=== PATIENT | male | born 1990 | race Caucasian/White ===

== ENCOUNTER 2016-08-06 23:09 | Observation (INO) | payer BC ==
[2016-08-06] MEDS ORDERED: diphenhydrAMINE 50 MG/ML SDV ONE (23:11)
[2016-08-06] MEDS ORDERED: methylPREDNISolone Sodium Succinate 125 MG/2 ML SDV ONE (23:12)
[2016-08-06] MEDS ORDERED: EPINEPHrine 1 MG/ML SDV ONE (23:12)
[2016-08-06] MEDS ORDERED: diphenhydrAMINE 50 MG/ML SDV IVPUSH ONE (23:13)
[2016-08-06] MEDS ORDERED: methylPREDNISolone Sodium Succinate 125 MG/2 ML SDV IVPUSH ONE (23:14)
[2016-08-06] MEDS ORDERED: EPINEPHrine 1 MG/ML SDV IM ONE (23:15)
--- NOTE | 2016-08-06 23:16 | EDM.PDOC ---
ED HPI GENERAL MEDICAL PROBLEM - General Chief Complaint: Allergic Reaction Stated Complaint: PT HAS ALLERGIC REACTION Time Seen by Provider: 08/06/16 23:14 - History of Present Illness INITIAL COMMENTS - FREE TEXT/NARRATIVE: HISTORY AND PHYSICAL: History of present illness: Patient 26-year-old male presents with concern of acute allergic reaction in the form of rash itchy eyes difficulty swallowing shortness of breath tongue and lip swelling states had lesser reactions in the past but similar he does not know the etiology of this reaction Review of systems: As per history of present illness and below otherwise all systems reviewed and negative. Past medical history: As per history of present illness and as reviewed below otherwise noncontributory. Surgical history: As per history of present illness and as reviewed below otherwise noncontributory. Social history: No reported history of drug or alcohol abuse. Family history: As per history of present illness and as reviewed below otherwise noncontributory. Physical exam: HEENT: Atraumatic, normocephalic, pupils reactive, negative for conjunctival pallor or scleral icterus, mucous membranes moist, throat clear, neck supple, nontender, trachea midline. Patient has injected conjunctiva with tongue and lip swelling noted Lungs: Slightly coarse bilaterally, breath sounds equal bilaterally, chest nontender. Heart: S1S2, regular, negative for clicks, rubs, or JVD. Abdomen: Soft, nondistended, nontender. Negative for masses or hepatosplenomegaly. Negative for costovertebral tenderness. Pelvis: Stable nontender. Genitourinary: Deferred. Rectal: Deferred. Extremities: Atraumatic, negative for cords or calf pain. Neurovascular unremarkable. Neuro: Awake, alert, oriented. Cranial nerves II through XII unremarkable. Cerebellum unremarkable. Motor and sensory unremarkable throughout. Exam nonfocal. Skin: Patient has a macular papular rash involving his face head and neck and upper extremities Diagnostics: CBC CMP chest x-ray Therapeutics: IV O2 monitor epinephrine 0.3 intramuscular Solu-Medrol 125 IV Benadryl 50 mg IV Impression: #1 acute allergic reaction Definitive disposition and diagnosis as appropriate pending reevaluation and review of above. - Related Data Allergies Allergy/AdvReac Type Severity Reaction Status Date / Time No Known Allergies Allergy Verified 08/19/15 07:13 Home Meds: Home Meds Albuterol Sulfate [Proair Hfa] 8.5 gm IH ASDIRECTED PRN 08/19/15 [History] Levofloxacin [Levaquin] 500 mg PO Q24H 08/19/15 [History] Promethazine HCl/Codeine [Prometh-Codein 6.25-10 mg/5 ml] 5 ml PO ASDIRECTED 10/26 [History] Past Medical History HEENT History: Reports: None Respiratory History: Reports: Asthma Social & Family History - Family History Family Medical History: Noncontributory - Tobacco Use Smoking Status *Q: Never Smoker Years of Tobacco use: 10 Packs/Tins Daily: 1 - Recreational Drug Use Recreational Drug Use: No ED ROS ALLERGIC REACTION - Review of Systems Review Of Systems: ROS reveals no pertinent complaints other than HPI. ED EXAM GENERAL NO PERIP PULSE - Physical Exam Exam: See Below (See dictation) Course - Vital Signs Last Recorded V/S: Last Vital Signs Temp 36.6 C 08/06/16 23:09 Pulse 107 08/06/16 23:34 Resp 18 08/06/16 23:34 BP 135/77 08/06/16 23:09 Pulse Ox 94 08/06/16 23:34 - Orders/Labs/Meds Orders: Active Orders 24 hr Category Date Time Status RT Aerosol Therapy [RC] ASDIRECTED Care 08/06/16 23:34 Active Chest 1V Frontal [CR] Stat Exams 08/06/16 23:54 Taken Meds: Medications Discontinued Medications Generic Name Dose Route Start Last Admin Trade Name Freq PRN Reason Stop Dose Admin Albuterol/Ipratropium 3 ml 08/06/16 23:34 08/06/16 23:43 Duoneb 3.0-0.5 Mg/3 Ml NEB 08/06/16 23:35 3 ml ONETIME ONE Administration Diphenhydramine HCl 50 mg 08/06/16 23:13 08/06/16 23:44 Benadryl IVPUSH 08/06/16 23:14 50 mg ONETIME ONE Administration Epinephrine HCl 0.3 mg 08/06/16 23:15 08/06/16 23:47 Adrenalin 1:1000 IM 08/06/16 23:16 0.3 mg ONETIME ONE Administration Methylprednisolone Sodium Succinate 125 mg 08/06/16 23:14 08/06/16 23:44 Solu-Medrol IVPUSH 08/06/16 23:15 125 mg ONETIME ONE Administration Departure - Departure Time of Disposition: 01:11 Disposition: Refer to Observation Condition: Good Clinical Impression: Angioedema, Allergic reaction - Discharge Information - My Orders Last 24 Hours: My Active Orders 08/06/16 23:34 RT Aerosol Therapy [RC] ASDIRECTED 08/06/16 23:54 Chest 1V Frontal [CR] Stat - Assessment/Plan Last 24 Hours: My Active Orders 08/06/16 23:34 RT Aerosol Therapy [RC] ASDIRECTED 08/06/16 23:54 Chest 1V Frontal [CR] Stat
[2016-08-06] MEDS ORDERED: Albuterol/Ipratropium 3.0-0.5 MG/3 ML Neb Soln NEB ONE (23:34)
[2016-08-07] MEDS ORDERED: diphenhydrAMINE 50 MG/ML SDV IVPUSH PRN (02:58)
[2016-08-07] MEDS ORDERED: Acetaminophen 325 MG Tab PO PRN (02:58)
[2016-08-07] MEDS ORDERED: Sodium Chloride 0.9% 2.5 ML Syringe FLUSH PRN (02:58)
[2016-08-07] MEDS ORDERED: Sodium Chloride 0.9% 10 ML Syringe FLUSH PRN (02:58)
[2016-08-07] MEDS ORDERED: Albuterol/Ipratropium 3.0-0.5 MG/3 ML Neb Soln NEB PRN (02:58)
[2016-08-07] MEDS: methylPREDNISolone Sodium Succinate 125 MG/2 ML SDV IVPUSH SCH ×2 (05:37→11:03)
[2016-08-07 08:04] LABS: CHLORIDE,CL 107 mmol/L (98-110); SODIUM,NA 137 mmol/L (136-146)
[2016-08-07 08:55] VITALS: BP 131/67
--- NOTE | 2016-08-07 10:29 | CR ---
EXAM DATE: 08/07/16 PATIENT'S AGE: 26 Patient: GABRIEL CHE Facility: [place], [place] Site . Site : 1990 Study: XRay Chest [id number]/28/2017 12:02:42 AM Ordering Physician: Miladis Suero Final Report: INDICATION: SOB, PT STATES ALLERGIC REACTION TECHNIQUE: Chest 1 view. COMPARISON: 08/19/15 FINDINGS: Cardiovascular and mediastinum: Heart size and vasculature are normal in caliber and appearance. Mediastinum is within normal limits. Lungs and pleural space: Lungs are clear. No sign of infiltrate or mass. No sign of pleural effusion. No pneumothorax. Bones and soft tissues: No significant findings. IMPRESSION: Unremarkable chest. Dictated by: Rodney Gray MD @ 08/07/2016 00:07:54 (Electronic Signature) Report Signed by Proxy. RENETTA
--- NOTE | 2016-08-07 10:47 | PCM.HP ---
H&P History of Present Illness - General Date of Service: 08/07/16 Admit Problem/Dx: Admission Diagnosis/Problem Admission Diagnosis/Problem Angioedema Source of Information: Patient History Limitations: Reports: No Limitations - History of Present Illness Initial Comments - Free Text/Narative: Note this is both the admission H&P as well as discharge summary. 26-year-old male admitted 08/06/16 for angioedema with past medical history of asthma. Patient initially presented to the emergency department with concerns of an allergic reaction with complaints of rash, itchy eyes, difficulty swallowing, shortness of breath, tongue and lip swelling. Patient reported having similar reactions in the past but not as severe. Patient reported no significant change in what he had been eating but stated that he had noted a large amount of dust that had gotten in his eyes and mouth on day of reaction. This has been going on for several years. He has had 3 episodes counting this one this year as well as 2 other episodes one in [place] and one in [place]. 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 Patient does see a provider in [place] as well as an research management associate was recommended desensitization therapy. In the emergency department patient was given duo nebs, Benadryl IV, and Solu- Medrol IV. She was admitted for observation and continued on Solu-Medrol, duo nebs, and Benadryl. On morning of discharge patient had complete resolution of the symptoms. Patient was discharged in good condition with a short prednisone dose, a prescription for an EpiPen, and followup was recommended desensitization therapy in the near future. chest Pain Score (Numeric/FACES): 3 - Related Data Allergies/Adverse Reactions: Allergies Allergy/AdvReac Type Severity Reaction Status Date / Time No Known Allergies Allergy Verified 08/19/15 07:13 Home Medications: Home Meds Ipratropium/Albuterol Sulfate [Combivent Respimat Inhal [place]] 1 spray INH DAILY PRN 08/07/16 [History] Past Medical History HEENT History: Reports: None Cardiovascular History: Reports: None Respiratory History: Reports: Asthma Gastrointestinal History: Reports: None Genitourinary History: Reports: None PROGRAM CONTROL ANALYST History: Reports: None Musculoskeletal History: Reports: None Neurological History: Reports: None Psychiatric History: Reports: None Endocrine/Metabolic History: Reports: None Hematologic History: Reports: None Immunologic History: Reports: None Oncologic (Cancer) History: Reports: None Dermatologic History: Reports: None - Infectious Disease History Infectious Disease History: Reports: None - Past Surgical History Female Surgical History: Reports: None Male Surgical History: Reports: None Oncologic Surgical History: Reports: None Social & Family History - Family History Family Medical History: Noncontributory HEENT: Reports: None Cardiac: Reports: None Respiratory: Reports: None GI: Reports: None : Reports: None OBGYN: Reports: None Musculoskeletal: Reports: None Neurological: Reports: None Psychiatric: Reports: None Endocrine/Metabolic: Reports: None Hematologic: Reports: None Immunologic: Reports: None Dermatologic: Reports: None Oncologic: Reports: None - Tobacco Use Smoking Status *Q: Never Smoker Years of Tobacco use: 10 Packs/Tins Daily: 1 Second Hand Smoke Exposure: No - Caffeine Use Caffeine Use: Reports: None - Recreational Drug Use Recreational Drug Use: No H&P Review of Systems - Review of Systems: Review Of Systems: See Below General: Denies: Fever, Chills, Malaise, Weakness, Fatigue HEENT: Denies: Dysphasia, Headaches Pulmonary: Denies: Shortness of Breath, Wheezing, Cough, Sputum, Hemoptysis Cardiovascular: Denies: Chest Pain, Palpitations Gastrointestinal: Denies: Abdominal Pain, Diarrhea, Nausea, Vomiting Genitourinary: Denies: Dysuria, Hematuria Musculoskeletal: Denies: Neck Pain, Leg Pain Skin: Denies: Cyanosis Psychiatric: Denies: Confusion Neurological: Denies: Confusion, Dizziness, Headache Immunologic: Reports: Environmental Allergy Exam - Exam Exam: See Below - Vital Signs Vital Signs: Last Vital Signs Temp 36.1 C 08/07/16 08:00 Pulse 71 08/07/16 08:00 Resp 16 08/07/16 08:00 BP 131/67 08/07/16 08:00 Pulse Ox 95 08/07/16 08:00 Weight: 108.5 kg - Exam Quality Assessment: DVT Prophylaxis General: Alert, Oriented, Cooperative HEENT: Conjunctiva Clear, EACs Clear, EOMI, Hearing Intact, Mucosa Moist & [place] , Nares Patent, Normal Nasal Septum, Posterior Pharynx Clear, PERRLA Neck: Supple, Trachea Midline, 2 Lungs: Clear to Auscultation, Normal Respiratory Effort Cardiovascular: Regular Rate, Regular Rhythm, Normal S1, Normal S2 Abdomen: Normal Bowel Sounds, Soft Back Exam: Normal Inspection, Full Range of Motion, NT Extremities: Normal Inspection, Normal Pulses Peripheral Pulses: 2+: Radial (L), Radial (R), Posterior Tibial (L), Posterior Tibial (R), Dorsalis Pedis (L), Dorsalis Pedis (R) Skin: Warm, Dry, Intact Neurological: Cranial Nerves Intact Neuro Extensive - Mental Status: Alert, Oriented x3, Normal Mood/Affect, Normal Cognition Neuro Extensive - Motor, Sensory, Reflexes: CN II-XII Intact, Normal Gait, Normal Reflexes Psychiatric: Alert, Normal Affect, Normal Mood - Patient Data Lab Results Last 24 hrs: Laboratory Results - last 24 hr 08/07/16 08/07/16 Range/Units 07:16 07:16 WBC 11.04 H (4.0-11.0) K/uL RBC 4.68 (4.50-5.90) M/uL Hgb 14.9 (13.0-17.0) g/dL Hct 43.1 (38.0-50.0) % MCV 92.1 (80.0-98.0) fL MCH 31.8 (27.0-32.0) pg MCHC 34.6 (31.0-37.0) g/dL RDW Std Deviation 43.1 (28.0-62.0) fl RDW Coeff of Sajan 13 (11.0-15.0) % Plt Count 296 (150-400) K/uL MPV 9.90 (7.40-12.00) fL Neut % (Auto) 90.9 H (48.0-80.0) % Lymph % (Auto) 6.8 L (16.0-40.0) % [place] % (Auto) 2.2 (0.0-15.0) % Eos % (Auto) 0.0 (0.0-7.0) % Baso % (Auto) 0.1 (0.0-1.5) % Neut # (Auto) 10.0 H (1.4-5.7) K/uL Lymph # (Auto) 0.8 (0.6-2.4) K/uL [place] # (Auto) 0.2 (0.0-0.8) K/uL Eos # (Auto) 0.0 (0.0-0.7) K/uL Baso # (Auto) 0.0 (0.0-0.1) K/uL Nucleated RBC % 0.0 /100WBC Nucleated RBCs # 0 K/uL Sodium 137 (136-146) mmol/L Potassium 4.6 (3.5-5.1) mmol/L Chloride 107 (98-110) mmol/L Carbon Dioxide 20 L (21-31) mmol/L BUN 15 (6.0-23.0) mg/dL Creatinine 1.0 (0.6-1.5) mg/dL Est Cr Clr Drug Dosing 120.71 mL/min Estimated GFR (MDRD) > 60.0 ml/min Glucose 155 H (60-110) mg/dL Calcium 9.4 (8.8-10.8) mg/dL Total Bilirubin 0.3 (0.1-1.5) mg/dL AST 19 (5-40) IU/L ALT 25 (8-54) IU/L Alkaline Phosphatase 64 (40-150) Total Protein 6.8 (6.0-8.0) g/dL Albumin 4.0 (3.5-5.0) g/dL Globulin 2.8 (2.0-3.5) g/dL Albumin/Globulin Ratio 1.4 (1.3-2.8) Result Diagrams: 08/07/16 07:16 08/07/16 07:16 *Q Meaningful Use (ADM) - VTE *Q VTE Criteria *Q: - Stroke *Q Stroke Criteria *Q: - AMI *Q AMI Criteria *Q: - Problem List (1) Allergic reaction SNOMED Code(s): 461864718 ICD Code: T78.40XA - ALLERGY, UNSPECIFIED, INITIAL ENCOUNTER Status: Acute Priority: High Current Visit: Yes Qualifiers: Encounter type: initial encounter Qualified Code(s): T78.40XA - Allergy, unspecified, initial encounter (2) Angioedema SNOMED Code(s): 34119926 ICD Code: T78.3XXA - ANGIONEUROTIC EDEMA, INITIAL ENCOUNTER Status: Acute Priority: High Current Visit: Yes Qualifiers: Encounter type: initial encounter Qualified Code(s): T78.3XXA - Angioneurotic edema, initial encounter Problem List Initiated/Reviewed/Updated: Yes Orders Last 24hrs: Active Orders 24 hr Category Date Time Status Activity as Tolerated [RC] .Routine Care 08/07/16 02:58 Active Communication Order [RC] DAILY Care 08/07/16 02:58 Active RT Aerosol Therapy [RC] ASDIRECTED Care 08/07/16 02:59 Active Telemetry Monitoring [Cardiac Monitoring] [RC] . Care 08/07/16 02:12 Active DIRECTED Regular Diet [DIET] Diet 08/07/16 Breakfast Active Acetaminophen [Tylenol] Med 08/07/16 02:58 Active 650 mg PO Q6H PRN Albuterol/Ipratropium [DuoNeb 3.0-0.5 MG/3 ML] Med 08/07/16 02:58 Active 3 ml NEB Q4HRRT PRN Sodium Chloride 0.9% [Saline Flush] Med 08/07/16 02:58 Active 10 ml FLUSH ASDIRECTED PRN Sodium Chloride 0.9% [Saline Flush] Med 08/07/16 02:58 Active 2.5 ml FLUSH ASDIRECTED PRN diphenhydrAMINE [Benadryl] Med 08/07/16 02:58 Active 25 mg IVPUSH Q6H PRN methylPREDNISolone Sod Succ [Solu-MEDROL] Med 08/07/16 06:00 Active 125 mg IVPUSH Q6H Saline Lock Insert [OM.PC] Routine Oth 08/07/16 02:58 Ordered Medication Orders Acetaminophen (Tylenol) 650 mg PO Q6H PRN PRN Reason: Pain Albuterol/Ipratropium (Duoneb 3.0-0.5 Mg/3 Ml) 3 ml NEB Q4HRRT PRN PRN Reason: Wheezing Diphenhydramine HCl (Benadryl) 25 mg IVPUSH Q6H PRN PRN Reason: Itching/mouth swelling Methylprednisolone Sodium Succinate (Solu-Medrol) 125 mg IVPUSH Q6H SABAS Last Admin: 08/07/16 05:37 Dose: 125 mg Sodium Chloride (Saline Flush) 10 ml FLUSH ASDIRECTED PRN PRN Reason: Keep Vein Open Sodium Chloride (Saline Flush) 2.5 ml FLUSH ASDIRECTED PRN PRN Reason: Keep Vein Open Assessment/Plan Comment:: Note this is both the admission H&P as well as discharge summary. 26-year-old male admitted 6/27/17 for angioedema with past medical history of asthma. Patient initially presented to the emergency department with concerns of an allergic reaction with complaints of rash, itchy eyes, difficulty swallowing, shortness of breath, tongue and lip swelling. Patient reported having similar reactions in the past but not as severe. Patient reported no significant change in what he had been eating but stated that he had noted a large amount of dust that had gotten in his eyes and mouth on day of reaction. This has been going on for several years. He has had 3 episodes counting this one this year as well as 2 other episodes one in [place] and one in [place]. 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 Patient does see a provider in [place] as well as an research management associate was recommended desensitization therapy. In the emergency department patient was given duo nebs, Benadryl IV, and Solu- Medrol IV. She was admitted for observation and continued on Solu-Medrol, duo nebs, and Benadryl. On morning of discharge patient had complete resolution of the symptoms. Patient was discharged in good condition with a short prednisone dose, a prescription for an EpiPen, and followup was recommended desensitization therapy in the near future.
== END 2016-08-07 11:50 | disposition home or self-care (01) ==
LOC: MW.ED 23:09 → MW.MS 08-07 01:12 → EDSEX 08-07 01:12
PROVIDERS: ADMIT Family Medicine; ATTEND Family Medicine
DX: T78.3XXA Angioneurotic edema, initial encounter (principal); T78.40XA Allergy, unspecified, initial encounter; J45.909 Unspecified asthma, uncomplicated
CPT/HCPCS: 36415; 71010; 80053; 85025; 96376; G0378; J0171; J1200; J2930; 96374; 96375; 99285; 99285-25